=== PATIENT | male | born 1990 | race Caucasian/White ===

== ENCOUNTER 2022-08-25 18:02 | Emergency (ER) | payer SELFPAY ==
[2022-08-25 18:17] VITALS: BP 118/72; PULSE 73; RESP 18; TEMP 97.6; BMI 25.8
[2022-08-25] MEDS ORDERED: DEXAMETHASONE SOD PHOSPHATE 10 MG/1 ML VIAL IM ONE (19:30)
[2022-08-25] MEDS ORDERED: diphenhydrAMINE HCL 25 MG CAPSULE (FP) PO ONE ×2 (19:30→19:42)
[2022-08-25] MEDS ORDERED: DEXAMETHASONE SOD PHOSPHATE 10 MG/1 ML VIAL ONE (19:42)
== END 2022-08-25 19:52 | disposition home or self-care (01) ==
LOC: JERFT 18:02
PROC: 3E023GC Introduction of Other Therapeutic Substance into Muscle, Percutaneous Approach (ICD-10-PCS; principal; 2022-08-25)
DX: T78.40XA Allergy, unspecified, initial encounter (principal)
CPT/HCPCS: 99284-25; J1100